=== PATIENT | female | born 1985 | race Caucasian/White ===

== ENCOUNTER 2017-04-25 08:55 | Emergency (ER) | payer SELFPAY ==
[~2017-04-25] VITALS: Ht 182.9 cm; Wt 108.2 kg
[2017-04-25 08:58] VITALS: BP 133/80
[2017-04-25] MEDS ORDERED: ALBU8HFA PO (09:26)
[2017-04-25] MEDS ORDERED: AZIT-57 PO (09:26)
== END 2017-04-25 09:35 | disposition home or self-care (01) ==
LOC: ER 08:56
DX: J20.9 Acute bronchitis, unspecified (principal); Z77.22 Contact with and (suspected) exposure to environmental tobacco smoke (acute) (chronic); Z79.899 Other long term (current) drug therapy
CPT/HCPCS: 99283

== ENCOUNTER 2018-01-20 08:46 | Emergency (ER) | payer MEDICAID, OTHER ==
[~2018-01-20] VITALS: Ht 182.9 cm; Wt 109.0 kg
[2018-01-20] MEDS ORDERED: LIDOcaine Viscous 15ml cup PO ONE (09:15)
[2018-01-20] MEDS ORDERED: sucralfate 1 gm tablet PO ONE (09:15)
[2018-01-20] MEDS ORDERED: mag hydrox/Alum hydrox/simeth 30ml oral suspension PO ONE (09:15)
[2018-01-20] MEDS ORDERED: famotidine 20mg tablet PO ONE (09:15)
[2018-01-20] MEDS ORDERED: FAMO40TA73 PO (09:43)
[2018-01-20 09:57] VITALS: BP 117/75
== END 2018-01-20 09:58 | disposition home or self-care (01) ==
LOC: ER 08:46
DX: R10.13 Epigastric pain (principal); F43.9 Reaction to severe stress, unspecified; Z88.2 Allergy status to sulfonamides; Z79.899 Other long term (current) drug therapy
CPT/HCPCS: 93005; 99284